=== PATIENT | female | born 1955 | race Caucasian/White ===

== ENCOUNTER → 2019-04-11 | Outpatient (CLI) | payer SELFPAY ==
--- NOTE | 2019-04-11 12:52 | CT_ITS ---
STUDY: CT CHEST WITHOUT CONTRAST REASON FOR EXAM: Female, 63 years old. Sarcoidosis. RADIATION DOSAGE (If Supplied By Facility): CTDIvol = ( 9.47 ) mGy, DLP = ( 343.12 ) mGycm TECHNIQUE: Transaxial imaging was performed without the administration of intravenous contrast material. Coronal and sagittal reformatted images were created. Individualized dose optimization techniques were used for this CT. COMPARISON: 05/29/2017. FINDINGS: There is subpleural parenchymal opacity noted in the lower lobes, right greater than left. This is increased when compared with the prior exam. There are no focal infiltrates. There are no pleural effusions. There is stable bronchiectasis in the right middle lobe and right lower lobe. There is no pneumothorax. The heart and pericardium are within normal limits. There is stable mediastinal and hilar lymphadenopathy. There is no evidence of thoracic aortic aneurysm. Images through the upper abdomen demonstrate right renal stones. There are no destructive osseous lesions. CT/Chest without Contrast IMPRESSION: Subpleural parenchymal opacity in the lower lobes, right greater than left. This is increased when compared with the prior exam. No focal infiltrates. No pleural effusions. Stable bronchiectasis in the right middle lobe and right lower lobe. Stable mediastinal and hilar lymphadenopathy. Right renal stones. Electronically Signed: Yonathan Richard, at 15:34 EDT Tel , Service support ,
== END | disposition home or self-care (01) ==
LOC: CT 12:47
PROVIDERS: Family Provider Family Medicine; PCP Family Medicine
DX: D86.9 Sarcoidosis, unspecified (principal)
CPT/HCPCS: 71250